=== PATIENT | female | born 1990 ===

== ENCOUNTER 2018-01-30 00:41 | Emergency (ER) | payer MEDICAID, OTHER ==
[2018-01-30 00:41] VITALS: BMI 26.7
--- NOTE | 2018-01-30 01:15 | ED PDOC ---
Upper Extremity Pain/Injury Time Seen by Provider: 01/30/18 00:58 Chief Complaint (Nursing): Upper Extremity Problem/Injury Chief Complaint (Provider): left elbow pain History Per: Patient History/Exam Limitations: no limitations Onset/Duration Of Symptoms: Days (3) Current Symptoms Are (Timing): Still Present Additional Complaint(s): 27 y/o female presents for evaluation of left elbow pain x 3 days. Patient states she fell rollerblading Saturday, dislocating her elbow. Patient was evaluated at [place] [facility] and had reduction under sedation. Patient was advised to ice area and follow up. Patient states pain/swelling persists despite ice, now with bruising. Denies numbness/weakness left upper extremity. No medication taken for pain relief thus far. Past Medical History Reviewed: Historical Data, Nursing Documentation, Vital Signs Vital Signs: Last Vital Signs Temp 99.2 F 01/30/18 00:50 Pulse 87 01/30/18 00:50 Resp 16 01/30/18 00:50 BP 131/87 01/30/18 00:50 Pulse Ox 99 01/30/18 00:50 - Medical History PMH: No Chronic Diseases Denies: Depression - Surgical History Surgical History: No Surg Hx - Family History Family History: States: Unknown Family Hx - Immunization History Hx Tetanus Toxoid Vaccination: No Hx Influenza Vaccination: No Hx Pneumococcal Vaccination: No - Home Medications Home Medications: Ambulatory Orders Medication Instructions Recorded Ibuprofen [Motrin Tab] 1 tab PO Q6 PRN #20 tab 01/30/18 traMADol [Ultram] 50 mg PO Q8 PRN #10 tab 01/30/18 - Allergies Allergies/Adverse Reactions: Allergies Allergy/AdvReac Type Severity Reaction Status Date / Time No Known Allergies Allergy Verified 02/27/17 16:18 Review of Systems ROS Statement: Except As Marked, All Systems Reviewed And Found Negative Musculoskeletal: Positive for: Arm Pain (left elbow) Physical Exam - Reviewed Nursing Documentation Reviewed: Yes Vital Signs Reviewed: Yes - Physical Exam Appears: Positive for: Well, Non-toxic, No Acute Distress Pulses-Radial (L): 2+ Pulses-Radial (R): 2+ Extremity: Positive for: Capillary Refill (<2 sec b/l UE), Swelling (edema, ecchymosis, tenderness left elbow; elbow in flexion, pain with extension. Distal NV/motor intact) Neurologic/Psych: Positive for: Alert, Oriented. Negative for: Motor/Sensory Deficits - ECG O2 Sat by Pulse Oximetry: 99 - Progress ED Course And Treament: xray, toradol IM EXAM: XR Left Elbow Complete, 3 or more Views EXAM DATE/TIME: 01/30/2018 1:11 AM CLINICAL HISTORY: 27 years old, female; Pain; Elbow; Left; Additional info: Fall/dislocation/ reduction 3 days ago, pain. Patient cannot extend elbow TECHNIQUE: XR Left elbow 3 or more views. COMPARISON: No relevant prior studies available. FINDINGS: Question vague osseous fragment adjacent to the lateral humeral epicondyles/ capitellum measuring 6 mm which may represent a fracture fragment. No dislocation or definite joint effusion. IMPRESSION: Question vague osseous fragment measuring 6 mm adjacent to the lateral humeral epicondyles/capitellum. No definite dislocation Patient educated on findings, placed in posterior splint. Sling placed back on ADvised follow up ortho Rx Ibuprofen, Tramadol provided RICE Return precautions given Disposition - Clinical Impression Clinical Impression: Elbow fracture, left - Patient ED Disposition Is Patient to be Admitted: No Counseled Patient/Family Regarding: Studies Performed, Diagnosis, Need For Followup, Rx Given - Disposition Referrals: [facility] [place] [Outside] [facility] [place] [Outside] Disposition: Routine/Home Disposition Time: 04:07 Condition: STABLE Prescriptions: Ibuprofen [Motrin Tab] 1 tab PO Q6 PRN #20 tab PRN Reason: Pain, Moderate (4-7) traMADol [Ultram] 50 mg PO Q8 PRN #10 tab PRN Reason: Pain, Severe (8-10) Instructions: Elbow Fracture (DC) Forms: [employer] (French)
[2018-01-30 03:41] VITALS: BP 122/69; PULSE 79; RESP 18; TEMP 98
[2018-01-30 03:54] VITALS: O2SAT 99
--- NOTE | 2018-01-30 09:11 | RAD ---
PROCEDURE: Radiographs of the left elbow. HISTORY: fall/dislocation/reduction 3 days ago, pain COMPARISON: No prior. FINDINGS: Exam is somewhat limited as patient cannot apparently extend fully of the left elbow BONES: Normal. No fracture. JOINTS: Normal. No osteoarthritis. SOFT TISSUES: There is subcutaneous reticulated edema along the more posterior soft tissues at the elbow joint level. Along the radial aspect -some lateral humeral epicondylar calcific tendinopathy is 1 consideration. No donor site appreciated to suggest an avulsionalthough this is not entirely excluded. JOINT EFFUSION: None appreciated OTHER FINDINGS: None IMPRESSION: No gross joint effusion per available lateral view. No gross cortical fracture. There is juxta osseous faint calcification bordering the lateral humeral epicondyle of unclear significance. Given the soft tissue swelling present, consider further evaluation with MRI of the elbow if clinically indicated
== END 2018-01-30 04:52 | disposition home or self-care (01) ==
LOC: H.ER 00:41
DX: S52.501A Unspecified fracture of the lower end of right radius, initial encounter for closed fracture (principal); Y93.51 Activity, roller skating (inline) and skateboarding; Y92.89 Other specified places as the place of occurrence of the external cause
CPT/HCPCS: 29125; 73080; 81025; 96372; 99285; J1885